=== PATIENT | male | born 1930 | race Caucasian/White ===

== ENCOUNTER 2020-08-28 14:22 | Inpatient (IN) | payer BC, MEDICARE ==
[~2020-08-28] VITALS: Ht 172.7 cm; Wt 65.3 kg
[2020-08-28 14:45] VITALS: BP 133/51
[2020-08-28] MEDS ORDERED: AMIO200T7 PO (14:51)
[2020-08-28] MEDS ORDERED: CARV12.5 PO (15:03)
[2020-08-28] MEDS ORDERED: DOCU-141 PO (15:04)
[2020-08-28] MEDS ORDERED: MAGN250T37 PO (15:05)
[2020-08-28] MEDS ORDERED: MEXI150C GT (15:06)
[2020-08-28] MEDS ORDERED: RIVA20TA PO (15:07)
[2020-08-28] MEDS ORDERED: THYR30TA2 PO (15:08)
[2020-08-28] MEDS ORDERED: BLOOD SUGAR DIAGNOSTIC 1 EACH STRIP VI ONE (15:30)
[2020-08-28] MEDS ORDERED: MAG HYDROX/AL HYDROX/SIMETH 30 ML LIQUID UDC PO PRN (15:30)
[2020-08-28] MEDS ORDERED: MAGNESIUM HYDROXIDE 30 ML LIQUID UDC PO PRN (15:30)
[2020-08-28] MEDS: CARVEDILOL 12.5 MG TABLET PO SCH ×2 (17:00→18:41)
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
[2020-08-28 17:36] LABS: *BILIRUBIN,URIN 2+ (NEGATIVE); *BLOOD, URINE 3+ (NEGATIVE); *CLARITY,URINE CLOUDY (CLEAR); *COLOR,URINE RED (YELLOW); *KETONES,URINE TRACE (NEGATIVE); LEUKOCYTE ESTERASE ,URINE NEGATIVE (NEGATIVE); NITRITE, URINE NEGATIVE (NEGATIVE); UGLUCOSE NEGATIVE (NEGATIVE)
[2020-08-28 20:00] VITALS: BP 107/53
--- NOTE | 2020-08-29 00:18 | NUR ---
Received patient in the akbar chair. Awake and alert but very confused and agitated. Patient resistant to nursing care and got angry when staff was trying to provide help to the bathroom. Patient is T[place] and difficult to communicate with. After some time, patient put into the bed for the night but attempted to get out on his own. Bed alarm on for safety. Continuous reorientation and redirection needed by this patient. Monitoring closely for falls and SI. Frequent rounds being done. No acute distress noted but patient is restless. Will assist with all needs.
[2020-08-29 01:45] LABS: BACTERIA,URINE MODERATE /HPF (NONE SEEN); RBC,URINE TNTC /HPF (0-3); SQUAMOUS EPITHELIAL CELL,UR FEW /HPF (NONE SEEN)
--- NOTE | 2020-08-29 05:34 | NUR ---
Patient was trying to climb out of bed multiple times. Shower given and dressings changed. Patient slept 1.45 min and refused to take PRN medications. This patient was up, talking to self and staff. Very confused and reorientation given continuously throughout the night. Monitoring closely for safety and for behavior escalation. No acute distress noted at this time.
[2020-08-29 07:30] VITALS: BP 138/61
[2020-08-29 07:52] LABS: BILIRUBIN,TOTAL 0.4 mg/dL (0.2-1.0); POTASSIUM 3.9 mmol/L (3.5-5.1); TOTAL PROTEIN, SERUM 6.5 g/dL (6.4-8.2)
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
[2020-08-29] MEDS ORDERED: THYROID 60 MG TABLET PO SCH ×2 (09:00)
[2020-08-29] MEDS ORDERED: MAGNESIUM OXIDE 250 MG TABLET PO SCH (09:00)
[2020-08-29] MEDS ORDERED: AMIODARONE HCL 200 MG TABLET PO SCH (09:00)
--- NOTE | 2020-08-29 09:53 | NUR ---
Called patient's pharmacy ([phone]) verified patients dose of Amiodarone or 300mg daily.
[2020-08-29] MEDS: DOCUSATE SODIUM 100 MG CAPSULE PO SCH (10:10)
[2020-08-29] MEDS: AMIODARONE HCL 200 MG TABLET PO SCH (10:11)
[2020-08-29] MEDS: MAGNESIUM OXIDE 400 MG TABLET PO SCH (10:11)
[2020-08-29] MEDS: CARVEDILOL 12.5 MG TABLET PO SCH ×2 (10:14→16:37)
--- NOTE | 2020-08-29 11:16 | NUR ---
Initial Discharge Plan: Patient currently [address], [place] [address] . Per Dorothy ([phone]) would want pt back home upon discharge. This SW will coordinate with MD and doctor.
--- NOTE | 2020-08-29 11:16 | NUR ---
SW Family Contact: This SW contacted patient's Dorothy ([phone]) to gather collateral and discuss treatment/discharge plan. Per Dorothy, she would want pt back home upon discharge. Dorothy was concerned in regard to patient pace maker and the medications he is taking. She informed she advised charge nurse about her concerns. This teletypewriter operator also notified patient's nurse Erma and she was also aware.
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
[2020-08-29] MEDS: SERTRALINE HCL 50 MG TABLET PO SCH (12:24)
[2020-08-29] MEDS: LORAZEPAM 0.5 MG TABLET PO PRN (12:36)
[2020-08-29] MEDS ORDERED: Z GUARD REMEDY PASTE 57 GM TUBE TOP PRN (13:15)
--- NOTE | 2020-08-29 13:15 | NUR ---
WOUND CARE CONSULT: PT PRESENTS WITH STAGE 3 ULCER TO UPPER BACK AND LEFT HAND SKIN TEAR, PRESENT ON ADMISSION. RECOMMENDATIONS MADE FOR SKIN PROTECTION AND WOUND CARE. DISCUSSED WITH NURSING STAFF. DR TORIE MANNING CALLED FOR SURGICAL CONSULT. IN AGREEMENT WITH PLAN OF CARE. Addendum: 08/29/20 at 1316 by CAMRYN MARSHALL RN Amended: Links added.
--- NOTE | 2020-08-29 14:27 | NUR ---
SW Family Contact: This SW spoke with patient's Dorothy ([phone]) and comforted patient in regards to patient's health condition. Dorothy was aware of pt's status.
[2020-08-29 16:00] VITALS: BP 106/54
[2020-08-29] MEDS ORDERED: RIVAROXABAN 10 MG TABLET PO SCH (17:00)
[2020-08-29 20:00] VITALS: BP 121/67
--- NOTE | 2020-08-30 06:49 | NUR ---
GPS/NSG Mrs. Tee called to request that her be transferred to [facility] as soon as possible, stated that she has a contact by the name of Maylin admissions specialist that may be reached at . Denies having an admitting physician and agreed to postpone until this morning. In addition wanted this commercial insurance underwriter to relay that she is willing to pay for private transport.
--- NOTE | 2020-08-30 06:51 | NUR ---
patient slept for approx. 3.45 hrs through the night. he forgetful but he is redirectable. He denied SI. will continue to monitor.
[2020-08-30 07:30] VITALS: BP 134/61
[2020-08-30] MEDS: DOCUSATE SODIUM 100 MG CAPSULE PO SCH (08:31)
[2020-08-30] MEDS: MAGNESIUM OXIDE 400 MG TABLET PO SCH (08:31)
[2020-08-30] MEDS: CARVEDILOL 12.5 MG TABLET PO SCH ×2 (08:32→16:15)
[2020-08-30] MEDS: AMIODARONE HCL 200 MG TABLET PO SCH (08:32)
--- NOTE | 2020-08-30 10:00 | NUR ---
SW Family: This procedure writer spoke with patient's Dorothy ([phone]) who stated would want pt to transfer to [facility]. She gave this procedure writer contact information of Maylin ([phone]) who will verify if bed is available and admitting physician.
--- NOTE | 2020-08-30 10:01 | NUR ---
[facility] CONTACT: This service writer left Maylin ([phone]) two voicemails to verify if bed is available and admitting physician. This service writer left detailed information of this SW contact information and rooming house operator number.
--- NOTE | 2020-08-30 10:25 | NUR ---
Gps/Human Resources Temp- Wound care to lumbar spine wound irreg. open areas , sites cleansed , wounds care done as ordered/magaly care taker RN. abrassion to left side of his scapula area cleansed, redressed. Bilateral brusings /ecchymosis forearms, skin flagile. Toileted , slow mobility contienent of his bowels and bladder, assisted with his hygine. Slightly reddened sacrococcygeal area, pressure relief. Compliant with am meds, redirectable, very [place], hearing aids not functioning well. Monitored safety.
--- NOTE | 2020-08-30 11:19 | NUR ---
PATIENT BLOOD IN THE URINE AND HIS DIAPER, AND BEEN SLEEPING ALOT AT THIS TIME, PATIENT BEEN QUIET AND HAVING NONSENSICAL REPLY WHEN ASKED, CALLED AND SPOKE WITH SIGNAL TESTER GLENSI WISEMAN, WITH ORDERS TO DO STAT CBC , CMP AND UA, AND TO HOLD BLOOD THINNERS, READ BACK ORDERS AND CARRIED OUT , FAMILY MADE AWARE, WILL CONTINUE MONITOR
--- NOTE | 2020-08-30 11:52 | NUR ---
Gps/Lines Tender- Patient was able to talked to his , while both hearing aid on .
--- NOTE | 2020-08-30 12:28 | NUR ---
[facility] CONTACT: This SW received a phone call from Maylin ([phone]) who stated pt can not be transferred to [facility] and stated she explained to pt has to be discharged. Maylin stated she explained to family pt would have to be discharged home or pt's can bring pt to the ER after pt is discharged.
--- NOTE | 2020-08-30 12:30 | NUR ---
SW Family Contact: This senior mortgage underwriter spoke with patient's Dorotyh ([phone]) and explained that Maylin from [facility] is unable to admit pt. Dorothy stated Maylin contacted and explained. Dorothy expressed pt has 24 hour caregiving services at home through [facility] ([phone]).
--- NOTE | 2020-08-30 12:34 | NUR ---
[facility]: This food writer contacted [facility] ([phone]) this food writer left a voicemail in regard to patient's services provided and requested to contact this food writer.
--- NOTE | 2020-08-30 12:47 | NUR ---
SW Family Contact: This functional tester typewriters contacted patient's son Santana ([phone]) and left a voicemail to discuss patient's discharge plan.
--- NOTE | 2020-08-30 13:00 | NUR ---
TRAM Coordination of Care: This inspector automatic typewriter spoke with [facility] receptionist who scheduled apt. ([facility]) Dr. Adrian Castelan ([phone]) located on [address] [place] [address], [address] scheduled on September 10 at 11:30AM will provide/manage psychotropic medications and will be referred to a psychiatrist.
[2020-08-30 13:10] LABS: BASOPHILS % (AUTO) 0.5 % (0.0-2.0); EOSINOPHILS # (AUTO) 0.1 K/uL (0.0-0.7); EOSINOPHILS % (AUTO) 1.4 % (0.0-7.0); HEMATOCRIT 31.3 % (36.7-47.1); HEMOGLOBIN 10.4 g/dL (12.5-16.3); LYMPHOCYTES # (AUTO) 0.5 K/uL (20.0-40.0); LYMPHOCYTES % (AUTO) 7.5 % (20.5-51.5); MAGNESIUM 2.2 mg/dL (1.8-2.4); MEAN CORPUSCULAR HGB CONC 33 g/dL (32.5-36.3); MONOCYTES # (AUTO) 0.8 K/uL (2.0-10.0); MONOCYTES % (AUTO) 10.8 % (0.0-11.0); NEUTROPHILS # (AUTO) 5.6 K/uL (1.8-8.9); NEUTROPHILS % (AUTO) 79.8 % (38.5-71.5); PLATELET COUNT (AUTO) 368 K/uL (152-348); RED BLOOD CELL COUNT(AUTO) 3.37 MIL/uL (4.06-5.63)
[2020-08-30 13:17] LABS: BILIRUBIN,TOTAL 0.5 mg/dL (0.2-1.0); CREATININE 1.1 mg/dL (0.6-1.3); POTASSIUM 4.1 mmol/L (3.5-5.1); TOTAL PROTEIN, SERUM 6.3 g/dL (6.4-8.2)
[2020-08-30] MEDS: SERTRALINE HCL 50 MG TABLET PO SCH (13:17)
--- NOTE | 2020-08-30 14:51 | NUR ---
Gps/Sterile Proc Tech- Toileted , voided 200 ml of blood tinge urine, specimen obtained , sent to lab. as ordered. Regular clothes put on patient as requested by his to put to put on a regular clothes each time.
--- NOTE | 2020-08-30 15:19 | NUR ---
SW Family Contact: This rfp writer contacted patient's son Santana ([phone]) and discussed discharge plan. He stated pt was receiving 24 hour care but then slowly decreased to 8/12 hours a day. Son stated if need they will ask for 24 hour caregiver at home. However, son stated he would have to discuss with his mother if she is "ok". Santana will follow up with this rfp writer.
[2020-08-30 16:49] VITALS: BP 99/57
--- NOTE | 2020-08-30 17:45 | NUR ---
Gps/Hedis Manager- Calling out to removed lap tray, ambulated earlier to the bathroom with very unsteady gait, with small steps. fluids offered, poor appetite, safety reviewed emphasized, extremely hard of hearing. Fragile skin , patches of bruising/ ecchymosis to his forearms and areas of his body, upper back /lumbar spine , left side of scapula area redressed as ordered. Bilateral hearing aids on.Forgetful, gets confused, reoriented . safety continue to emphasized.
[2020-08-30] MEDS: TEMAZEPAM 7.5 MG CAPSULE PO PRN (22:09)
[2020-08-30 22:37] VITALS: BP 100/52
--- NOTE | 2020-08-31 06:34 | NUR ---
GPS/Rn - Patient is confuse but able to communicate some needs clearly. Asked for something to eat and provided and Patient ate snack. Kept up in akbar-chair for safety and monitor with BRP given. Pt noted with some agitation and restlessness. Give PRN after none pharmacological intervention ineffective. Was effective and Pt rested well and slept up to 6hrs.
[2020-08-31 07:30] VITALS: BP 147/59
[2020-08-31] MEDS: DOCUSATE SODIUM 100 MG CAPSULE PO SCH (08:55)
[2020-08-31] MEDS: CARVEDILOL 12.5 MG TABLET PO SCH ×2 (08:56→17:10)
[2020-08-31] MEDS: AMIODARONE HCL 200 MG TABLET PO SCH (08:56)
[2020-08-31] MEDS: MAGNESIUM OXIDE 400 MG TABLET PO SCH (09:09)
--- NOTE | 2020-08-31 09:20 | NUR ---
Gps/Truck Driver Heavy- refusing routine am meds. claimed nicotine patch makes her throw up , " i needed to smoke " informed of the restrictions. , verbalized undertanding but insistent does not want to take any medications from dr Kerns, and claimed she needs to get out of here. .
--- NOTE | 2020-08-31 12:29 | NUR ---
DOCTOR OFFICE CONTACT: Per Dr. Luo's request this sign writer hand contacted (Conveyor Technician) Dr. Adrian Castelan ([phone]) office and requested to contact Dr. Luo (URGENT).
--- NOTE | 2020-08-31 13:09 | NUR ---
SW Family Contact: This SW spoke to patient's son Santana ([phone]) and discussed caregiving services. He stated they are able to provide 24 hour caregiving help at home but would want more caregiving resources from this SW. This SW provided caregiving resources such a [facility] ([phone]), [facility] ([phone]), and [facility] ([phone]). This SW also gave Independent Living resident service coordinator resource number Arielle ([phone]).
[2020-08-31] MEDS: SERTRALINE HCL 50 MG TABLET PO SCH (13:11)
[2020-08-31 14:40] LABS: BASOPHILS % (AUTO) 0.6 % (0.0-2.0); EOSINOPHILS # (AUTO) 0.1 K/uL (0.0-0.7); EOSINOPHILS % (AUTO) 1.7 % (0.0-7.0); HEMATOCRIT 33.8 % (36.7-47.1); LYMPHOCYTES # (AUTO) 0.5 K/uL (20.0-40.0); LYMPHOCYTES % (AUTO) 6.7 % (20.5-51.5); MEAN CORPUSCULAR HEMOGLOBIN 30.4 uug (23.8-33.4); MEAN CORPUSCULAR HGB CONC 33 g/dL (32.5-36.3); MEAN CORPUSCULAR VOLUME 92.9 fL (73.0-96.2); MONOCYTES # (AUTO) 0.8 K/uL (2.0-10.0); NEUTROPHILS # (AUTO) 6.3 K/uL (1.8-8.9); PLATELET COUNT (AUTO) 412 K/uL (152-348); RED BLOOD CELL COUNT(AUTO) 3.63 MIL/uL (4.06-5.63); WHITE BLOOD COUNT (AUTO) 7.8 K/uL (3.6-10.2)
[2020-08-31 14:45] LABS: BILIRUBIN,TOTAL 0.4 mg/dL (0.2-1.0); CREATININE 1.2 mg/dL (0.6-1.3); POTASSIUM 3.9 mmol/L (3.5-5.1); TOTAL PROTEIN, SERUM 6.9 g/dL (6.4-8.2)
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
[2020-08-31 16:00] VITALS: BP 107/53
[2020-08-31 17:09] LABS: AMYLASE 47 U/L (25-115); LIPASE 92 U/L (73-393)
[2020-08-31 17:55] LABS: *BILIRUBIN,URIN 2+ (NEGATIVE); *BLOOD, URINE 3+ (NEGATIVE); *CLARITY,URINE TURBID (CLEAR); *COLOR,URINE Brown (YELLOW); *KETONES,URINE TRACE (NEGATIVE); LEUKOCYTE ESTERASE ,URINE NEGATIVE (NEGATIVE); NITRITE, URINE NEGATIVE (NEGATIVE); PH,URINE 6.5 (5.0-8.0); UGLUCOSE NEGATIVE (NEGATIVE)
[2020-08-31] MEDS: RIVAROXABAN 10 MG TABLET PO SCH (18:14)
[2020-08-31 20:00] VITALS: BP 118/64
[2020-08-31 21:51] LABS: BACTERIA,URINE FEW /HPF (NONE SEEN); RBC,URINE TNTC /HPF (0-3); SQUAMOUS EPITHELIAL CELL,UR FEW /HPF (NONE SEEN); WBC,URINE 0-3 /HPF (0-3)
[2020-09-01 07:30] VITALS: BP 105/64
[2020-09-01] MEDS: DOCUSATE SODIUM 100 MG CAPSULE PO SCH (08:26)
[2020-09-01] MEDS: CARVEDILOL 12.5 MG TABLET PO SCH ×2 (08:26→17:00)
[2020-09-01] MEDS: MAGNESIUM OXIDE 400 MG TABLET PO SCH (08:26)
[2020-09-01] MEDS: AMIODARONE HCL 200 MG TABLET PO SCH (08:26)
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
--- NOTE | 2020-09-01 12:01 | NUR ---
DR DURBIN CALLED BACK WITH ORDERS FOR CT OF HEAD. V/S ARE FOLLOWS: 159/67, 64, 17, 96%RA. PT REMAINS ASYMPTOMATIC OTHER THAN SOME PAIN TO BACK OF HEAD. IS NOTIFIED OF THE FALL. WEB OFFSET PRESS FEEDER IS NOTIFIED OF FALL.
[2020-09-01] MEDS: ACETAMINOPHEN 325 MG TABLET PO PRN ×2 (12:14→21:45)
[2020-09-01] MEDS: SERTRALINE HCL 50 MG TABLET PO SCH (12:15)
[2020-09-01 14:32] LABS: BASOPHILS % (AUTO) 0.4 % (0.0-2.0); EOSINOPHILS # (AUTO) 0.1 K/uL (0.0-0.7); EOSINOPHILS % (AUTO) 1.1 % (0.0-7.0); HEMATOCRIT 32.1 % (36.7-47.1); HEMOGLOBIN 10.6 g/dL (12.5-16.3); LYMPHOCYTES # (AUTO) 0.5 K/uL (20.0-40.0); LYMPHOCYTES % (AUTO) 6.5 % (20.5-51.5); MEAN CORPUSCULAR HEMOGLOBIN 30.4 uug (23.8-33.4); MEAN CORPUSCULAR HGB CONC 33 g/dL (32.5-36.3); MEAN CORPUSCULAR VOLUME 92.2 fL (73.0-96.2); MONOCYTES # (AUTO) 0.8 K/uL (2.0-10.0); MONOCYTES % (AUTO) 9.8 % (0.0-11.0); NEUTROPHILS # (AUTO) 6.6 K/uL (1.8-8.9); NEUTROPHILS % (AUTO) 82.2 % (38.5-71.5); PLATELET COUNT (AUTO) 378 K/uL (152-348); RED BLOOD CELL COUNT(AUTO) 3.48 MIL/uL (4.06-5.63); WHITE BLOOD COUNT (AUTO) 8.1 K/uL (3.6-10.2)
[2020-09-01 14:43] LABS: BILIRUBIN,TOTAL 0.5 mg/dL (0.2-1.0); CREATININE 1.1 mg/dL (0.6-1.3); POTASSIUM 4.1 mmol/L (3.5-5.1); TOTAL PROTEIN, SERUM 6.2 g/dL (6.4-8.2)
[2020-09-01 15:53] VITALS: BP 94/44
[2020-09-01] MEDS: RIVAROXABAN 10 MG TABLET PO SCH (17:03)
[2020-09-01 20:00] VITALS: BP 124/72
[2020-09-02] MEDS: TEMAZEPAM 7.5 MG CAPSULE PO PRN ×2 (00:14→21:05)
--- NOTE | 2020-09-02 06:02 | NUR ---
PATIENT ALERT BUT WITH CONFUSION, EXPRESS MANY TIMES WANTING TO GO HOME, PATIENT SEATED A RECLINING CHAIR WHEN IT WAS RECEIVED DUE TO INCIDENT OF FALL, PATIENT OVERESTIMATES HIS ABILITY TO AMBULATE. PATIENT WAS PUT BACK ON BED AND SLEPT 7.30 MINUTES, GIVEN TYLENOL PLUS SLEEPING AID FOR PAIN AND INSOMNIA, NO ADVERSE REACTION NOTED. PATIENT HAS EPISODE OF CLIMBING OUT OF BED, BED ALARM IS ON ALL THE TIME.
[2020-09-02 07:30] VITALS: BP 113/61
[2020-09-02] MEDS: DOCUSATE SODIUM 100 MG CAPSULE PO SCH (08:31)
[2020-09-02] MEDS: CARVEDILOL 12.5 MG TABLET PO SCH ×2 (08:31→16:54)
[2020-09-02] MEDS: MAGNESIUM OXIDE 400 MG TABLET PO SCH (08:31)
[2020-09-02] MEDS: AMIODARONE HCL 200 MG TABLET PO SCH (08:31)
[2020-09-02 10:30] VITALS: BP 128/75
--- NOTE | 2020-09-02 11:21 | NUR ---
WHILE SLAB MILLER OPERATOR IS GIVING PT A SHOWER, PT STATED THAT HE IS HAVING SHARP PAIN TO RIGHT SIDE OF CHEST. CALLED AND SPOKE TO GLENIS WISEMAN NP WITH ORDER FOR NITROL 0.4MG SL X3. NOTED AND WILL CARRY OUT.
[2020-09-02] MEDS: ACETAMINOPHEN 325 MG TABLET PO PRN ×2 (11:27→21:04)
[2020-09-02] MEDS ORDERED: NITROGLYCERIN 0.4 MG/TAB BOTTLE SL PRN (11:30)
--- NOTE | 2020-09-02 11:37 | NUR ---
Administered only one dose of Nitro SL. Will hold second dose at this time due to hypotension. Administered Tylenol for pain at this time.
--- NOTE | 2020-09-02 11:42 | NUR ---
RECEIVED ORDER FOR CHEST XRAY AND EKG. PT REMAINS ALERT BUT CONFUSED AT THIS TIME. STATES TYLENOL HELPS WITH THE PAIN. CURRENTLY ON MIRA CHAIR IN UNIT HALLWAY AFTER BATH.
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
--- NOTE | 2020-09-02 12:06 | NUR ---
BP IS NOW STABLE AT 124/58.
[2020-09-02] MEDS: SERTRALINE HCL 50 MG TABLET PO SCH (12:16)
[2020-09-02 16:00] VITALS: BP 137/70
[2020-09-02] MEDS: RIVAROXABAN 10 MG TABLET PO SCH (17:59)
[2020-09-02] MEDS: levoFLOXacin 500 MG TABLET PO SCH (19:30)
[2020-09-02 20:13] VITALS: BP 109/50
--- NOTE | 2020-09-02 23:35 | NUR ---
Received patient in the hallway, hyperverbal, med compliant, oriented by name, poor insight and poor judgement. Patient received restoril 7.5 mg PO prn for insomnia, and tylenol 650 mg PO for pain. Patient will remain in a psych facility for further evaluation and treatment.
[2020-09-03] MEDS: MAGNESIUM OXIDE 400 MG TABLET PO SCH (08:45)
[2020-09-03] MEDS: DOCUSATE SODIUM 100 MG CAPSULE PO SCH (08:45)
[2020-09-03] MEDS: AMIODARONE HCL 200 MG TABLET PO SCH (08:46)
[2020-09-03] MEDS: CARVEDILOL 12.5 MG TABLET PO SCH ×2 (08:47→17:00)
--- NOTE | 2020-09-03 10:43 | NUR ---
TRAM PC Hearing Notification: granite worker contacted patient's Dorothy, ([phone]) and notified patients probable cause of hearing today. wants to be present for court hearing.
--- NOTE | 2020-09-03 10:43 | NUR ---
Probable Cause Hearing: Court hearing was today. Pt was upheld for GD.
--- NOTE | 2020-09-03 11:26 | NUR ---
WOUND CARE CONSULT: PT SEEN FOR DRY ABRASION TO POSTERIOR SCALP. NO DRAINAGE, ERYTHEMA OR TENDERNESS NOTED. CONTINUE ALL SKIN PROTECTION MEASURES. DISCUSSED WITH NURSING STAFF. WILL SEE PRN.
--- NOTE | 2020-09-03 12:07 | NUR ---
SW Family Contact: This SW spoke with patient's son Santana ([phone]) and discussed discharge plan. Per Santana, he stated pt has a 24 hr caregiver at home and will resume once patient is home. This SW also discussed Independent Living options for patient and Dorothy for future termination clerk care. This SW gave phone number of Arielle ([phone]) who will help coordinate Independent Living options.
[2020-09-03] MEDS: SERTRALINE HCL 50 MG TABLET PO SCH (12:29)
--- NOTE | 2020-09-03 12:37 | NUR ---
Received a call from Dr. Luo to D/C MRI order and will be discharge pt home in am.
--- NOTE | 2020-09-03 12:48 | NUR ---
SW Family Contact: This jingle writer spoke with patient's Dorothy ([phone]) and stated she will orange picking supervisor pt at 10AM on 09/04.
--- NOTE | 2020-09-03 14:56 | NUR ---
SW Note: This SW met with pt and gave pt alternative options such as SNF or home. Pt wanted to go home.
[2020-09-03 15:12] VITALS: BP 119/84
--- NOTE | 2020-09-03 16:30 | NUR ---
EARLY THURSDAY DISCHARGE NOTE: Patient will be discharged home [address], [place] [address]; ([phone]). Patients Dorothy ([phone]) will brass pickler patient at 11:30AM. Patients Dorothy ([phone]) is aware and agreeable with discharge. Patient is alert and oriented x2 and is aware and agreeable with discharge plan. Patient denies suicidal or homicidal ideation. Patient presents with euthymic mood and congruent affect. Patient will be following up with her Felt Dyeing Machine Tender Dr. Adrian Castelan ([phone]) located on [address] [place] [address], [address] scheduled on September 10 at 11:30AM will provide/manage psychotropic medications and will be referred to a psychiatrist. This SW spoke to patient's son Santana ([phone]) and discussed caregiving services. He stated they are able to provide 24-hour caregiving help at home but would want more caregiving resources from this SW. This SW provided caregiving resources such as: [facility] ([phone]), [facility] ([phone]), and [facility] ([phone]). This SW also gave Independent Living cash applications coordinator resource number Arielle ([phone]).
[2020-09-03] MEDS: busPIRone 5 MG TABLET PO SCH (17:00)
[2020-09-03] MEDS: RIVAROXABAN 10 MG TABLET PO SCH (17:01)
[2020-09-03] MEDS: levoFLOXacin 500 MG TABLET PO SCH ×2 (19:00→19:37)
[2020-09-03] MEDS: LORAZEPAM 0.5 MG TABLET PO PRN ×2 (19:37→19:54)
--- NOTE | 2020-09-03 19:54 | NUR ---
Pt was initially going to take his medication, but spit his meds out stating, "I can't go along with this program anymore, I don't agree with what you're doing." When asked to elaborate, Pt said, "It's private." Pt educated on the benefits and indications of the medications, but he still refused. Will re-offer medication, trainer aware.
[2020-09-03 20:00] VITALS: BP 111/51
--- NOTE | 2020-09-04 03:30 | NUR ---
Ativan 0.5mg wasted with liquor inspectorKERON C[place].
--- NOTE | 2020-09-04 06:44 | NUR ---
Received Pt in the hallway sitting in a akbar chair eating a snack. A+Ox1, Pt is confused, disoriented, forgetful and disorganized in thought process. Pt is delusional and thinks he is at home about to leave for a trip, requires frequent reality reorientation and reminders. Pt is anxious, restless, and agitated at times. Initally agreed to take medications, but spit them out stating, ""I can't go along with this program anymore, I don't agree with what you're doing." When asked to elaborate, Pt said, "It's private." Pt educated on the benefits and indications of the medications, but he still refused. Refused again on re-approach. VS stable, denies pain.
[2020-09-04 07:30] VITALS: BP 125/61
[2020-09-04] MEDS: busPIRone 5 MG TABLET PO SCH (08:15)
[2020-09-04] MEDS: DOCUSATE SODIUM 100 MG CAPSULE PO SCH (08:15)
[2020-09-04] MEDS: MAGNESIUM OXIDE 400 MG TABLET PO SCH (08:15)
[2020-09-04] MEDS: AMIODARONE HCL 200 MG TABLET PO SCH (08:16)
[2020-09-04 08:17] VITALS: BP 125/61
[2020-09-04] MEDS: CARVEDILOL 12.5 MG TABLET PO SCH (08:17)
[2020-09-04 10:41] LABS: BASOPHILS % (AUTO) 0.2 % (0.0-2.0); EOSINOPHILS % (AUTO) 0.4 % (0.0-7.0); HEMATOCRIT 31.2 % (36.7-47.1); HEMOGLOBIN 10.1 g/dL (12.5-16.3); LYMPHOCYTES # (AUTO) 0.5 K/uL (20.0-40.0); LYMPHOCYTES % (AUTO) 5.3 % (20.5-51.5); MEAN CORPUSCULAR HEMOGLOBIN 29.9 uug (23.8-33.4); MEAN CORPUSCULAR HGB CONC 32 g/dL (32.5-36.3); MEAN CORPUSCULAR VOLUME 92.2 fL (73.0-96.2); MONOCYTES % (AUTO) 10.5 % (0.0-11.0); NEUTROPHILS # (AUTO) 7.9 K/uL (1.8-8.9); NEUTROPHILS % (AUTO) 83.6 % (38.5-71.5); PLATELET COUNT (AUTO) 359 K/uL (152-348); RED BLOOD CELL COUNT(AUTO) 3.39 MIL/uL (4.06-5.63); WHITE BLOOD COUNT (AUTO) 9.5 K/uL (3.6-10.2)
[2020-09-04 11:10] LABS: BILIRUBIN,TOTAL 0.5 mg/dL (0.2-1.0); CREATININE 1.3 mg/dL (0.6-1.3); MAGNESIUM 2.3 mg/dL (1.8-2.4); POTASSIUM 4.1 mmol/L (3.5-5.1); TOTAL PROTEIN, SERUM 6.2 g/dL (6.4-8.2)
[2020-09-04] MEDS: LORAZEPAM 0.5 MG TABLET PO PRN (11:12)
--- NOTE | 2020-09-04 11:26 | NUR ---
Patient discharged home. Patients Dorothy order picker patient at 11:30AM. is aware and agreeable with discharge. discharge prescriptions faxed to pt's pharmacy and copy given to .all personal belonging returned to patient.
== END 2020-09-04 11:30 | disposition home or self-care (01) | DRG 885 ==
LOC: GPS 14:22
PROVIDERS: ADMIT Psychiatry & Neurology Psychosomatic Medicine; ATTEND Internal Medicine
DX: F33.2 Major depressive disorder, recurrent severe without psychotic features (principal); F05 Delirium due to known physiological condition; L89.103 Pressure ulcer of unspecified part of back, stage 3; R45.851 Suicidal ideations; Z91.5 Personal history of self-harm; I48.0 Paroxysmal atrial fibrillation; E78.5 Hyperlipidemia, unspecified; D64.9 Anemia, unspecified; F03.90 Unspecified dementia, unspecified severity, without behavioral disturbance, psychotic disturbance, mood disturbance, and anxiety; I10 Essential (primary) hypertension; F41.9 Anxiety disorder, unspecified; R53.1 Weakness; R31.9 Hematuria, unspecified; Z91.81 History of falling; E86.0 Dehydration; S09.90XA Unspecified injury of head, initial encounter; D47.3 Essential (hemorrhagic) thrombocythemia; W19.XXXA Unspecified fall, initial encounter; Y93.9 Activity, unspecified; Y92.89 Other specified places as the place of occurrence of the external cause; Z95.1 Presence of aortocoronary bypass graft
CPT/HCPCS: 36415; 70450; 71045; 76770; 83605; 83690; 83735; 85025; 87086; 93005